=== PATIENT | female | born 1985 | race Two or more races ===

== ENCOUNTER 2016-06-10 06:18 | Emergency (ER) | payer OTHER ==
[~2016-06-10] VITALS: Ht 157.5 cm; Wt 52.2 kg
[2016-06-10 06:26] VITALS: BP 132/44
[2016-06-10] MEDS ORDERED: DEXAMETHASONE 1 MG TABLET PO ONE (06:30)
[2016-06-10] MEDS ORDERED: DEXAMETHASONE 1 MG TABLET ONE (06:30)
== END 2016-06-10 06:43 | disposition home or self-care (01) ==
LOC: ER 06:20
DX: J02.8 Acute pharyngitis due to other specified organisms (principal); J04.0 Acute laryngitis
CPT/HCPCS: 99282; A4606; J8540; Z7610

== ENCOUNTER 2016-08-02 20:59 | Emergency (ER) | payer OTHER ==
[~2016-08-02] VITALS: Ht 157.5 cm; Wt 53.5 kg
[2016-08-02 21:02] VITALS: BP 121/83
--- NOTE | 2016-08-02 21:09 | NUR ---
AFTER TRIAGE, PT STATES SHE WAS ALREADY SEEN BY URGENT CARE AND WAS PRESCRIBED PREDNISONE THAT SHE STARTED TAKING AT 1600 TODAY. SINCE THE PAIN DIDNT GO AWAY, SHE CAME TO ED FOR RE EVAL. I TOLD PT THE ONSET FOR THAT MEDICATION CAN BE 18 HR, PT THEN DECIDED TO GO HOME AND WAIT FOR MEDICATION TO WORK. PT THEN STATED SHE DID NOT WANT TO BE SEEN BY [facility] ED OR MD, AND LEFT [facility]
== END 2016-08-02 21:13 | disposition left against medical advice (07) ==
LOC: ER 21:01
DX: Z53.21 Procedure and treatment not carried out due to patient leaving prior to being seen by health care provider (principal)
CPT/HCPCS: A4606; A6402; Z7610